=== PATIENT | female | born 1940 | race African-American/Black ===

== ENCOUNTER 2017-01-17 09:34 | Day surgery (SDC) | payer BC ==
--- NOTE | ~2017-01-17 | EGD ---
EGD REPORT [facility] [address] [place] [id number] NAME: NICHOL CHOI : [birth year] STATUS : REG [facility] [place] PAT#: [id number] AGE: 76 ADM/REG DATE : 01/17/17 MR#: [id number] REPORT SERV DATE: 01/17/17 DICTATED BY: ALIYAH WEISS DATE: 01/17/17 REPORT STATUS : Draft [facility] DATE: 01/17/17 [facility] Patient Name: Nichol Choi Date of : 1940 Attending MD: ALIYAH WEISS MD Procedure Date No Time: 01/17/2017 Procedure: Upper GI endoscopy Indications: Heartburn; gastric stricture (NSAID's); no acid suppression; side effects to ppi. Patient Profile: Informed consent was obtained from the patient by me prior to the procedure. Risks, benefits, and alternatives were discussed including the risk of bleeding, perforation, infection, reaction to medicine, missed lesion, and cardiopulmonary complications. Referring MD: MERON ROSE MD Medicines: Monitored Anesthesia Care Complications: No immediate complications. Procedure: After obtaining informed consent, the endoscope was passed under direct vision. Throughout the procedure, the patient's blood pressure, pulse, and oxygen saturations were monitored continuously. The GIF [id number] was introduced through the mouth, and advanced to the second part of duodenum. The endoscope was withdrawn with careful examination all mucosal surfaces including retroflexion stomach. The upper GI endoscopy was accomplished without difficulty. The patient tolerated the procedure well. Findings: The examined duodenum was normal. Localized mild inflammation was found in the gastric antrum, at pre-pyloric stricture, no ulcerations. Biopsies were taken with a cold forceps for histology. A TTS dilator was passed through the scope and visualzed in duodenum prior to dilation. Dilation with a 12-15 mm balloon dilator was performed; excellent results. The cardia, gastric fundus and gastric body were normal. A small hiatus hernia was present. LA Grade A (one or more mucosal breaks less than 5 mm, not extending between tops of 2 mucosal folds) esophagitis was found, no nodules. The examined esophagus was normal. Impression: - Normal examined duodenum. - Gastritis. Biopsied. Dilated. - Normal cardia, gastric fundus and gastric body. - Hiatus hernia. EGD REPORT [address] [place]. [address] NAME: NICHOL CHOI : [birth year] STATUS : REG [facility] [place] PAT#: [id number] AGE: 76 ADM/REG DATE : 01/17/17 MR#: [id number] REPORT SERV DATE: 01/17/17 DICTATED BY: ALIYAH WEISS DATE: 01/17/17 REPORT STATUS : Draft TRANSCRIBED BY: [employer] DATE: 01/17/17 - LA Grade A reflux esophagitis. - Normal esophagus. Recommendation: - Patient has a contact number available for emergencies. The signs and symptoms of potential delayed complications were discussed with the patient. Return to normal activities tomorrow. Written discharge instructions were provided to the patient. - Regular diet. - Continue present medications. - Await pathology results. - Take ranitidine 150mg bid. - Schd f/u visit 3 months. Procedure Code(s): --- Professional --- 23565, Esophagogastroduodenoscopy, flexible, transoral; with dilation of gastric/duodenal stricture(s) (eg, balloon, bougie) 82746, Esophagogastroduodenoscopy, flexible, transoral; with biopsy, single or multiple Diagnosis Code(s): --- Professional --- K29.70, Gastritis, unspecified, without bleeding K44.9, Diaphragmatic hernia without obstruction or gangrene K21.0, Gastro-esophageal reflux disease with esophagitis R12, Heartburn CPT copyright 2013 [employer]. All rights reserved. The codes documented in this report are preliminary and upon fuel cell designer review may be revised to meet current compliance requirements. ALIYAH WEISS MD 01/17/2017 10:30 AM This report has been signed electronically. Number of Addenda: 0 Note Initiated On: 01/17/2017 10:07 AM Scope Withdrawal Time 0 hours 0 minutes 0 seconds [address] [address]
[~2017-01-17 09:34] MED LIST: LEVOTHYROXIN50 MCG PO; LOTREL1 CA4 PO; ZOCOR20 PO
== END 2017-01-17 23:59 | disposition home or self-care (01) ==
LOC: DMU 09:34
PROVIDERS: Internal Medicine Gastroenterology
PROC: 0DB68ZX Excision of Stomach, Via Natural or Artificial Opening Endoscopic, Diagnostic (ICD-10-PCS; principal; 2017-01-17 07:30)
PROC: 0D768ZZ Dilation of Stomach, Via Natural or Artificial Opening Endoscopic (ICD-10-PCS; 2017-01-17 07:30)
DX: K29.50 Unspecified chronic gastritis without bleeding (principal); K21.0 Gastro-esophageal reflux disease with esophagitis; K44.9 Diaphragmatic hernia without obstruction or gangrene; I10 Essential (primary) hypertension; I69.311 Memory deficit following cerebral infarction; I69.351 Hemiplegia and hemiparesis following cerebral infarction affecting right dominant side; E03.9 Hypothyroidism, unspecified; G47.33 Obstructive sleep apnea (adult) (pediatric); M32.9 Systemic lupus erythematosus, unspecified; M06.9 Rheumatoid arthritis, unspecified; Z79.899 Other long term (current) drug therapy
CPT/HCPCS: 88305; C1726